=== PATIENT | female | born 1930 | race Caucasian/White ===

== ENCOUNTER 2016-10-06 20:05 | Observation (INO) | payer MEDICARE, OTHER ==
[~2016-10-06 20:05] MED LIST: ASPIRIN325 M3 PO; ATIVAN1 MG PO; B COMPLETE1 TAB; BACTRIM DS TAB1 EAC2 PO; CALCIUM 500 WIT1 TAB; COLACE100 M1 PO; IBUPROFEN200 M3 PO; KEFLEX500 M1 PO; KEFLEX500 M2 PO; MACROBID100 MG/CA1 PO; MIRALAX17 G1 PO; NO MEDICATIONS; NO MEDS; NORCO 5-325 TA1 EACH PO; NORCO 5/325 TAB1 TAB PO; TYLENOL325 M2 PO; TYLENOL650 MG PO; ULTRAM50 M1 PO; ZOFRAN ODT4 MG/UDTAB PO
[2016-10-06] MEDS ORDERED: SYNTHROID25 MC1 PO (20:09)
[2016-10-06 21:18] LABS: BASO % 0.2 % (0-2); EOS % 0.5 % (0-7); EOSINOPHIL ABSOLUTE COUNT 0.1 tho/cmm (0.0-0.7); HCT-HEMATOCRIT 35.4 % (34.0-49.0); HGB-HEMOGLOBIN 11.8 gm/dl (12.0-15.5); IMMATURE GRANULOCYTES ABSOLUTE 0.02 tho/cmm (0-0.03); IMMATURE GRANULOCYTES PERCENT 0.2 % (0-0.3); LYMPH % 5.3 % (20-45); LYMPH ABSOLUTE COUNT 0.6 tho/cmm (0.8-4.5); MCH (MEAN CORPUSCULAR HGB) 28.8 pg (28.0-32.0); MCHC MEAN CORPUSCULAR HGB CONC 33.3 % (32.0-36.0); MCV (MEAN CELL VOLUME) 86.3 fl (82.0-96.0); MEAN PLATELET VOLUME 8.6 cmc (9.4-12.4); MONO % 7.1 % (0-12); MONOCYTE ABSOLUTE COUNT 0.8 tho/cmm (0.0-1.2); NEUTROPHIL ABSOLUTE COUNT 9.8 tho/cmm (1.6-8.0); NEUTROPHIL-AUTOMATED 9.8 tho/cmm (1.6-8.0); NEUTROPHILS % 86.7 % (40-80); PLATELET COUNT 295 tho/cmm (150-450); RED CELL DISTRIBUTION WIDTH 13.7 % (12.4-16.4); WHITE BLOOD COUNT 11.3 tho/cmm (4.0-10.0)
[2016-10-06 21:36] LABS: ALB/GLOB RATIO 0.8 (0.8-2.0); ALBUMIN 3.2 g/dl (3.5-5.0); ALKALINE PHOSPHATASE 108 U/L (33-138); ALT/SGPT 14 U/L (12-78); ANION GAP 13 mmol/L (0-20); AST/SGOT 24 U/L (10-40); BILIRUBIN,TOTAL 0.6 mg/dl (0-1.5); BLOOD UREA NITROGEN 18 mg/dl (6-24); CALCIUM 9.1 mg/dl (8.5-10.5); CARBON DIOXIDE-VENOUS 26 mmol/L (22-32); CHLORIDE 102 mmol/l (96-110); CREATININE 0.54 mg/dl (0.50-1.10); GLUCOSE 136 mg/dL (70-110); LIPASE 159 U/L (73-393); SODIUM 137 mmol/L (135-145); eGFR VALUE FOR BLACK >90 mL/Min
[2016-10-07 11:56] LABS: BASO % 0.2 % (0-2); EOS % 0.8 % (0-7); EOSINOPHIL ABSOLUTE COUNT 0.1 tho/cmm (0.0-0.7); IMMATURE GRANULOCYTES ABSOLUTE 0.01 tho/cmm (0-0.03); IMMATURE GRANULOCYTES PERCENT 0.2 % (0-0.3); LYMPH % 11.7 % (20-45); LYMPH ABSOLUTE COUNT 0.8 tho/cmm (0.8-4.5); MCH (MEAN CORPUSCULAR HGB) 28.6 pg (28.0-32.0); MCHC MEAN CORPUSCULAR HGB CONC 33.3 % (32.0-36.0); MCV (MEAN CELL VOLUME) 85.7 fl (82.0-96.0); MEAN PLATELET VOLUME 8.5 cmc (9.4-12.4); MONO % 5.4 % (0-12); MONOCYTE ABSOLUTE COUNT 0.4 tho/cmm (0.0-1.2); NEUTROPHIL ABSOLUTE COUNT 5.3 tho/cmm (1.6-8.0); NEUTROPHIL-AUTOMATED 5.3 tho/cmm (1.6-8.0); NEUTROPHILS % 81.7 % (40-80); PLATELET COUNT 243 tho/cmm (150-450); RED BLOOD COUNT 3.85 mil/cmm (4.00-5.20); RED CELL DISTRIBUTION WIDTH 13.9 % (12.4-16.4); WHITE BLOOD COUNT 6.5 tho/cmm (4.0-10.0)
[2016-10-07 12:03] LABS: ANION GAP 13 mmol/L (0-20); BLOOD UREA NITROGEN 11 mg/dl (6-24); CARBON DIOXIDE-VENOUS 24 mmol/L (22-32); CHLORIDE 105 mmol/l (96-110); CREATININE 0.39 mg/dl (0.50-1.10); GLUCOSE 97 mg/dL (70-110); POTASSIUM 3.7 mmol/L (3.7-5.1); SODIUM 138 mmol/L (135-145); eGFR VALUE FOR BLACK >90 mL/Min
[2016-10-07] MEDS ORDERED: PRILOSEC OTC20 M1 PO (13:51)
[2017-02-07] MEDS ORDERED: CARAFATE1 GM/10 M1 PO (00:04)
== END 2016-10-07 17:00 ==
LOC: EDMED 20:05 → EMR2 10-07 00:20 → 5WE 10-07 02:14
PROVIDERS: Emergency Medicine; Hospitalist; ADMIT Hospitalist
DX: R10.30 Lower abdominal pain, unspecified (principal); R11.2 Nausea with vomiting, unspecified; K52.9 Noninfective gastroenteritis and colitis, unspecified; K43.9 Ventral hernia without obstruction or gangrene; D72.829 Elevated white blood cell count, unspecified; F03.90 Unspecified dementia, unspecified severity, without behavioral disturbance, psychotic disturbance, mood disturbance, and anxiety; M81.0 Age-related osteoporosis without current pathological fracture; E03.9 Hypothyroidism, unspecified; K83.8 Other specified diseases of biliary tract; Z79.899 Other long term (current) drug therapy; Z88.1 Allergy status to other antibiotic agents; Z85.038 Personal history of other malignant neoplasm of large intestine; Z93.3 Colostomy status; Z90.49 Acquired absence of other specified parts of digestive tract; Z90.710 Acquired absence of both cervix and uterus; Z98.890 Other specified postprocedural states
CPT/HCPCS: C9113; G0378; G8978-GP-CI; G8979-GP-CI; G8980-GP-CI; J2405; J7030; Q9967